=== PATIENT | male | born 1970 | race Caucasian/White ===

== ENCOUNTER 2021-08-04 10:23 | Day surgery (SDC) | payer BC ==
[2021-08-01 10:48] VITALS: BMI 32.3
[2021-08-04] MEDS ORDERED: PROPOFOL 20 ML ONE ×3 (11:44)
[2021-08-04 12:30] VITALS: TEMP 97.5
[2021-08-04 12:52] VITALS: BP 131/79; PULSE 78
== END 2021-08-04 13:00 | disposition home or self-care (01) ==
LOC: FASU-ENDO 10:23
PROVIDERS: ATTEND Internal Medicine Gastroenterology
PROC: 0DB68ZX Excision of Stomach, Via Natural or Artificial Opening Endoscopic, Diagnostic (ICD-10-PCS; 2021-08-04)
PROC: 0DB98ZX Excision of Duodenum, Via Natural or Artificial Opening Endoscopic, Diagnostic (ICD-10-PCS; principal; 2021-08-04 11:55)
DX: K29.50 Unspecified chronic gastritis without bleeding (principal); K29.80 Duodenitis without bleeding; R12 Heartburn
CPT/HCPCS: 88305-TC; 88342-TC